=== PATIENT | female | born 1980 | race African-American/Black ===

== ENCOUNTER 2019-01-26 19:34 | Emergency (ER) | payer BC ==
--- NOTE | 2019-01-26 19:58 | EDM.PDOC ---
ED HPI GENERAL MEDICAL PROBLEM - General Chief Complaint: Chest Pain Stated Complaint: CHEST PAIN Time Seen by Provider: 01/26/19 19:42 Source of Information: Reports: Patient, RN Notes Reviewed - History of Present Illness INITIAL COMMENTS - FREE TEXT/NARRATIVE: 38-year-old female comes in with left-sided chest discomfort. She has had this off and on for about a month more bothersome the last few days. She describes it as an ache and somewhat of a pressure without radiation. She does not feel short of breath. She's not been coughing and no recent fever chills. No abdominal pain nausea or vomiting. He has been taking a diet pill for about the past month but has not taken that for about the last 4 or 5 days. Not know the name of it, apparently something she ordered over the Internet. She has no known history of heart or lung problems or other known medical problems. Left Chest Pain Score (Numeric/FACES): 5 - Related Data Allergies Allergy/AdvReac Type Severity Reaction Status Date / Time No Known Allergies Allergy Verified 01/26/19 19:41 Home Meds: Home Meds Diet Pill 2 tab PO DAILY 01/26/19 [History] Naproxen [Naprosyn] 500 mg PO Q12HR #14 tab 01/26/19 [Rx] ED ROS GENERAL - Review of Systems Review Of Systems: See Below Constitutional: Denies: Fever, Chills, Diaphoresis HEENT: Denies: Hearing Loss, Sinus Problem Respiratory: Denies: Shortness of Breath, Wheezing, Pleuritic Chest Pain Cardiovascular: Reports: Chest Pain GI/Abdominal: Denies: Abdominal Pain, Nausea, Vomiting Musculoskeletal: Denies: Shoulder Pain, Arm Pain, Back Pain Skin: Reports: No Symptoms Neurological: Reports: No Symptoms ED EXAM, GENERAL - Physical Exam Exam: See Below General Appearance: Alert, No Apparent Distress Eye Exam: Bilateral Eye: PERRL Throat/Mouth: Normal Inspection Head: Atraumatic Neck: Supple, Full Range of Motion Respiratory/Chest: No Respiratory Distress, Lungs Clear, Normal Breath Sounds Cardiovascular: Tachycardia GI/Abdominal: Soft, Non-Tender Back Exam: No: CVA Tenderness (L), CVA Tenderness (R) Extremities: Normal Inspection. No: Pedal Edema, Leg Pain Neurological: Alert, Oriented, No Motor/Sensory Deficits EKG INTERPRETATION EKG Date: 01/26/19 Rhythm: Other (Sinus tach) [place]: Normal P-Wave: Present QRS: Normal ST-T: Other (Very slight ST elevation in V2, T-wave inversion in leads 3) Course - Vital Signs Last Recorded V/S: Last Vital Signs Temp 97.1 F 01/26/19 19:43 Pulse 113 H 01/26/19 19:43 Resp 18 01/26/19 19:43 BP 149/84 H 01/26/19 19:43 Pulse Ox 100 01/26/19 19:43 - Orders/Labs/Meds Orders: Active Orders 24 hr Category Date Time Status EKG 12 Lead [EKG Documentation Completion] [RC] STAT Care 01/26/19 20:07 Active Chest 1V Frontal [CR] Stat Exams 01/26/19 20:06 Taken Naproxen [Naprosyn] Med 01/26/19 21:47 Once 500 mg PO ONETIME ONE Medication Orders Naproxen (Naprosyn) 500 mg PO ONETIME ONE Stop: 01/26/19 21:48 Labs: Laboratory Tests 01/26/19 01/26/19 01/26/19 Range/Units 20:45 20:45 20:45 WBC 7.28 (3.98-10.04) K/mm3 RBC 4.32 (3.98-5.22) M/mm3 Hgb 11.2 (11.2-15.7) gm/L Hct 35.7 (34.1-44.9) % MCV 82.6 (79.4-94.8) fl MCH 25.9 (25.6-32.2) pg MCHC 31.4 L (32.2-35.5) g/dl RDW Std Deviation 43.8 (36.4-46.3) fL Plt Count 341 (182-369) K/mm3 MPV 9.7 (9.4-12.3) fl Neut % (Auto) 71.8 H (34.0-71.1) % Lymph % (Auto) 20.1 (19.3-51.7) % [place] % (Auto) 6.6 (4.7-12.5) % Eos % (Auto) 1.1 (0.7-5.8) Baso % (Auto) 0.1 (0.1-1.2) % Neut # (Auto) 5.23 (1.56-6.13) K/mm3 Lymph # (Auto) 1.46 (1.18-3.74) K/mm3 [place] # (Auto) 0.48 H (0.24-0.36) K/mm3 Eos # (Auto) 0.08 (0.04-0.36) K/mm3 Baso # (Auto) 0.01 (0.01-0.08) K/mm3 ESR 41 H (0-20) mm/hr Sodium 140 (136-145) mEq/L Potassium 3.8 (3.5-5.1) mEq/L Chloride 103 (98-107) mEq/L Carbon Dioxide 30 (21-32) mEq/L Anion Gap 10.8 (5-15) BUN 9 (7-18) mg/dL Creatinine 1.1 H (0.55-1.02) mg/dL Est Cr Clr Drug Dosing 63.01 mL/min Estimated GFR (MDRD) > 60 (>60) mL/min BUN/Creatinine Ratio 8.2 L (14-18) Glucose 83 (74-106) mg/dL Calcium 8.9 (8.5-10.1) mg/dL Total Bilirubin 0.2 (0.2-1.0) mg/dL AST 20 (15-37) U/L ALT 25 (14-59) U/L Alkaline Phosphatase 98 (46-116) U/L Total Protein 7.4 (6.4-8.2) g/dl Albumin 2.9 L (3.4-5.0) g/dl Globulin 4.5 gm/dL Albumin/Globulin Ratio 0.6 L (1-2) TSH 3rd Generation 2.292 (0.358-3.74) uIU/mL Urine HCG, Qual (NEGATIVE) 01/26/19 Range/Units 21:04 WBC (3.98-10.04) K/mm3 RBC (3.98-5.22) M/mm3 Hgb (11.2-15.7) gm/L Hct (34.1-44.9) % MCV (79.4-94.8) fl MCH (25.6-32.2) pg MCHC (32.2-35.5) g/dl RDW Std Deviation (36.4-46.3) fL Plt Count (182-369) K/mm3 MPV (9.4-12.3) fl Neut % (Auto) (34.0-71.1) % Lymph % (Auto) (19.3-51.7) % [place] % (Auto) (4.7-12.5) % Eos % (Auto) (0.7-5.8) Baso % (Auto) (0.1-1.2) % Neut # (Auto) (1.56-6.13) K/mm3 Lymph # (Auto) (1.18-3.74) K/mm3 [place] # (Auto) (0.24-0.36) K/mm3 Eos # (Auto) (0.04-0.36) K/mm3 Baso # (Auto) (0.01-0.08) K/mm3 ESR (0-20) mm/hr Sodium (136-145) mEq/L Potassium (3.5-5.1) mEq/L Chloride (98-107) mEq/L Carbon Dioxide (21-32) mEq/L Anion Gap (5-15) BUN (7-18) mg/dL Creatinine (0.55-1.02) mg/dL Est Cr Clr Drug Dosing mL/min Estimated GFR (MDRD) (>60) mL/min BUN/Creatinine Ratio (14-18) Glucose (74-106) mg/dL Calcium (8.5-10.1) mg/dL Total Bilirubin (0.2-1.0) mg/dL AST (15-37) U/L ALT (14-59) U/L Alkaline Phosphatase (46-116) U/L Total Protein (6.4-8.2) g/dl Albumin (3.4-5.0) g/dl Globulin gm/dL Albumin/Globulin Ratio (1-2) TSH 3rd Generation (0.358-3.74) uIU/mL Urine HCG, Qual Negative (NEGATIVE) Meds: Medications Generic Name Dose Route Start Last Admin Trade Name Freq PRN Reason Stop Dose Admin Naproxen 500 mg 01/26/19 21:47 Naprosyn PO 01/26/19 21:48 ONETIME ONE Departure - Departure Time of Disposition: 21:49 Disposition: Home, Self-Care 01 Condition: Fair Clinical Impression: Pericarditis Qualifiers: Pericarditis type: unspecified type Chronicity: acute Qualified Code(s): I30.9 - Acute pericarditis, unspecified Prescriptions: Naproxen [Naprosyn] 500 mg PO Q12HR #14 tab Referrals: PCP,None [Primary Care Provider] - Forms: ED Department Discharge Additional Instructions: Rest, drink plenty of water to maintain hydration, Naprosyn 500 mg twice daily, be sure to always take that with food or after meals. follow-up with Cherise or one of our other medical providers at our [facility] medical clinic in about 3 days. Call [phone] tomorrow morning for appointment. Return to ED as needed if symptoms worsening in any way. - My Orders Last 24 Hours: My Active Orders 01/26/19 20:06 Chest 1V Frontal [CR] Stat 01/26/19 20:07 EKG 12 Lead [EKG Documentation Completion] [RC] STAT 01/26/19 21:47 Naproxen [Naprosyn] 500 mg PO ONETIME ONE - Assessment/Plan Last 24 Hours: My Active Orders 01/26/19 20:06 Chest 1V Frontal [CR] Stat 01/26/19 20:07 EKG 12 Lead [EKG Documentation Completion] [RC] STAT 01/26/19 21:47 Naproxen [Naprosyn] 500 mg PO ONETIME ONE
[2019-01-26] MEDS ORDERED: Naproxen 500 MG Tab PO ONE (21:47)
--- NOTE | 2019-01-27 06:15 | CR ---
Chest: Portable view of the chest was obtained. Comparison: No previous chest x-ray. Heart size and mediastinum are normal. Lungs are clear. Bony structures are grossly intact. Impression: 1. Nothing acute is seen on portable chest x-ray. Diagnostic code #1
== END 2019-01-26 22:00 | disposition home or self-care (01) ==
LOC: JD.ED 19:34
DX: I30.9 Acute pericarditis, unspecified (principal)
CPT/HCPCS: 36415; 71045; 80053; 81025; 84443; 85025; 85652; 93005; 99285; A9270; 93010; 99284

== ENCOUNTER 2020-12-08 19:16 | Emergency (ER) | payer BC ==
--- NOTE | 2020-12-08 20:03 | EDM.PDOC ---
ED HPI GENERAL MEDICAL PROBLEM - General Chief Complaint: Lower Extremity Injury/Pain Stated Complaint: RT FOOT SWELLING Time Seen by Provider: 12/08/20 19:36 Source of Information: Reports: Patient History Limitations: Reports: No Limitations - History of Present Illness INITIAL COMMENTS - FREE TEXT/NARRATIVE: Mrs. Hernandez is a very pleasant 39-year-old woman who now presents to the ED due to pain and swelling to the dorsal aspect of her right foot and anterior right ankle that began this past 12/06/2020, after she was dancing on 12/05/2020. She does not recall any direct injury to her ankle or foot, such as rolling it or banging it against anything. No prior right ankle or foot injury. The patient states that she has been applying ice packs and applying a topical pain cream, without much improvement in her symptoms. Here in the ED, the patient's initial BP is found to be slightly elevated at 143/89, otherwise, she is hemodynamically stable, afebrile, saturating 98% on room air. In addition to her right ankle issue, the patient also reports chronic dysmenorrhea that she states was worse when she was younger, but continues as she gets older. She states that she is from [place], and saw a Template Reproduction Technician when there, but she has not seen one since moving to the [facility]. Otherwise, the patient denies having a recent fever, chills, sore throat, ear pain, nasal or sinus congestion, cough, dyspnea, chest pain, palpitations, nausea, vomiting, constipation, diarrhea, abdominal pain, urinary symptoms, recent weight gain or weight loss, recent bloody bowel movements or black bowel movements, recent joint aches, headaches, or rashes. The patient does not have a PCP. She has not received an influenza vaccine this season, but agreed to receive one here in the ED. Right Foot Pain Score (Numeric/FACES): 7 - Related Data Allergies Allergy/AdvReac Type Severity Reaction Status Date / Time No Known Allergies Allergy Verified 12/08/20 19:30 Home Meds: Home Meds [place]-3 Fatty Acids/Fish Oil [Fish Oil 1,000 mg Capsule] 1 cap PO DAILY 12/08/20 [History] Past Medical History Endocrine/Metabolic History: Reports: Obesity/BMI 30+ - Past Surgical History HEENT Surgical History: Reports: Oral Surgery (dental extractions) Female Surgical History: Reports: Section (x 1) Dermatological Surgical History: Reports: Other (See Below) (Bilateral ear keloidectomies) Social & Family History - Tobacco Use Tobacco Use Status *Q: Never Tobacco User Second Hand Smoke Exposure: No - Caffeine Use Caffeine Use: Reports: Coffee, Soda - Alcohol Use Alcohol Use History: Yes Alcohol Use Frequency: Rarely - Recreational Drug Use Recreational Drug Use: No - Living Situation & Occupation Living situation: Reports: , with Spouse, with Family (1 child) Occupation: Employed ([employer] at [employer]) Review of Systems - Review of Systems Review Of Systems: Comprehensive ROS is negative, except as noted in HPI. ED EXAM, GENERAL - Physical Exam Exam: See Below Exam Limited By: No Limitations General Appearance: Alert, WD/WN, No Apparent Distress Extremities: Other (There is very subtle swelling to the dorsal aspect of the patient's right foot. I do not see swelling to the anterior ankle, although the patient believes that there is some swelling and discoloration, which I do not see. There is tenderness to palpation of the anterior syndesmosis extending to the miguel-superior lateral malleolus, with no tenderness whatsoever to the medial malleolus or posterior syndesmosis. There is similar tenderness to palpation along the dorsal aspect of the foot extending to the MTPs. Pain is induced in the foot with passive plantarflexion of the toes or active dorsiflexion, while there is no pain induced with passive dorsiflexion or active plantar flexion. Neurovascular status of the right lower extremity is intact.) Course - Vital Signs Last Recorded V/S: Last Vital Signs Temp 36.6 C 12/08/20 19:28 Pulse 99 12/08/20 19:28 Resp 18 12/08/20 19:28 BP 143/89 H 12/08/20 19:28 Pulse Ox 98 12/08/20 19:28 - Orders/Labs/Meds Orders: Active Orders 24 hr Category Date Time Status Influenza Vaccine Charge [RC] .DISCHARGE Care 12/08/20 19:58 Active Ankle Min 3V Rt [CR] Stat Exams 12/08/20 19:58 Ordered Foot Comp Min 3V Rt [CR] Stat Exams 12/08/20 19:57 Ordered Pharmacy to Dose - InFluenza V [Pharmacy to Dose - Med 12/08/20 19:58 Stat InFluenza Vaccine] 1 each IM ONETIME STA DME for Discharge [COMM] Stat Oth 12/08/20 20:32 Ordered Medication Orders Influenza Virus Vaccine (Pharmacy To Dose - Influenza Vaccine) 1 each IM ONETIME STA Stop: 12/08/20 19:59 Meds: Medications Generic Name Dose Route Start Last Admin Trade Name Iliana PRN Reason Stop Dose Admin Influenza Virus Vaccine 1 each 12/08/20 19:58 Pharmacy To Dose - Influenza Vaccine IM 12/08/20 19:59 ONETIME STA - Re-Assessments/Exams Free Text/Narrative Re-Assessment/Exam: 12/08/20 19:59 As above, the patient developed pain and very mild swelling to the dorsal aspect of her foot and ankle on Saturday, after she was dancing on Saturday. Her examination is consistent with extensor tendinitis, and there is no suspicion for fracture, however, I have ordered x-rays of the right ankle and foot just to be sure. As part of my evaluation, I asked the patient if she has been ill over the past 2 or 3 weeks, and she reported that she has chronic dysmenorrhea. At this time, she appears to be more concerned about her dysmenorrhea than her ankle and foot. After I have finished evaluating her right foot and ankle, my plan will be to refer her to a Template Reproduction Technician. 12/08/20 20:27 4-view radiographs of the right ankle appear to be grossly normal, with no fractures or dislocations identified. Formal read per the Radiologist pending. 4-view radiographs of the right foot appear to be grossly normal, with no fractures or dislocations identified. Formal read per the Radiologist pending. 12/08/20 20:33 X-ray results discussed with the patient. As above, she appears to have extensor tendinitis of her right ankle and foot due to overexertion/strain. I will order an ankle stirrup, which will prevent plantar flexion and dorsiflexion of the foot, which should help to speed its recovery. She should wear it for about a week. I would also like her to apply ice packs and take [id number] ibuprofen. There is no need to continue to apply topical pain medicines, as they have been shown to be of no benefit. Lastly, I will refer her to Dr. Ruiz for gynecologic evaluation of her dysmenorrhea. The patient will be given an influenza vaccine prior to being discharged. Departure - Departure Time of Disposition: 20:35 Disposition: Home, Self-Care 01 Condition: Good Clinical Impression: Tendinitis of right foot - Discharge Information *PRESCRIPTION DRUG MONITORING PROGRAM REVIEWED*: Not Applicable *COPY OF PRESCRIPTION DRUG MONITORING REPORT IN PATIENT DEDRICK: Not Applicable Referrals: PCP,None [Primary Care Provider] - Foster Ruiz MD [Physician] - Forms: ED Department Discharge Additional Instructions: You were seen in the emergency room after developing pain and swelling to the top of your right ankle and foot on Saturday after dancing on Saturday. Work-up in the ER included x-rays of your right ankle and foot, which returned normal, with no broken bones or dislocations seen. Based on your history, physical exam, and ER x-rays, your symptoms are most likely due to extensor tendinitis of your right ankle and foot due to overuse/strain. You have been placed into a stirrup splint. We recommend that you apply the splint in the morning, and remove it at bedtime. We recommend that you wear it for about a week. We recommend that you apply ice packs for 10 to 15 minutes, up to 5 times a day, for the next 2 or 3 days, to help minimize swelling. We recommend that you take [id number] ibuprofen, 3 tablets (600 mg) up to every 8 hours, with food, as needed for discomfort. With respect to your dysmenorrhea, we recommend that you make an appointment to be seen by the Template Reproduction Technician Dr. Foster Ruiz. If any other problems, please do not hesitate to return to the ER. You were given an influenza vaccine during your ER visit. Sepsis Event Note (ED) - Evaluation Sepsis Screening Result: No Definite Risk - Focused Exam Vital Signs: Vital Signs Temp Pulse Resp BP Pulse Ox 12/08/20 19:28 36.6 C 99 18 143/89 H 98 - My Orders Last 24 Hours: My Active Orders 12/08/20 19:57 Foot Comp Min 3V Rt [CR] Stat 12/08/20 19:58 Influenza Vaccine Charge [RC] .DISCHARGE Ankle Min 3V Rt [CR] Stat Pharmacy to Dose - InFluenza V [Pharmacy to Dose - InFluenza Vaccine] 1 each IM ONETIME STA 12/08/20 20:32 DME for Discharge [COMM] Stat - Assessment/Plan Last 24 Hours: My Active Orders 12/08/20 19:57 Foot Comp Min 3V Rt [CR] Stat 12/08/20 19:58 Influenza Vaccine Charge [RC] .DISCHARGE Ankle Min 3V Rt [CR] Stat Pharmacy to Dose - InFluenza V [Pharmacy to Dose - InFluenza Vaccine] 1 each IM ONETIME STA 12/08/20 20:32 DME for Discharge [COMM] Stat
[2020-12-08] MEDS ORDERED: FLU VACC QS2020-21(6MOS UP)/PF 60 MCG/0.5 ML SYRINGE IM ONE (20:45)
--- NOTE | 2020-12-09 08:09 | CR ---
Right ankle: 4 views of the right ankle were obtained. Comparison: No previous study. Ankle mortise is symmetric. No acute fracture or other bony abnormality is appreciated. Impression: 1. No acute osseous finding is seen on right ankle study. Diagnostic code #1
--- NOTE | 2020-12-09 08:18 | CR ---
Right foot: 4 views of the right foot were obtained. Comparison: No prior foot exam is available. No acute fracture, dislocation or other bony abnormality is appreciated. Impression: 1. No abnormality is appreciated on 4 view right foot exam. Diagnostic code #1
== END 2020-12-08 21:09 | disposition home or self-care (01) ==
LOC: JD.ED 19:16
DX: M77.8 Other enthesopathies, not elsewhere classified (principal); E66.9 Obesity, unspecified; Z23 Encounter for immunization
CPT/HCPCS: 73610-26-RT; 73610-RT; 73630-26-RT; 73630-RT; 90686; 99283; 99283-25; G0008

== ENCOUNTER 2021-12-20 03:21 | Emergency (ER) | payer SELFPAY | END 2021-12-20 07:47 | disposition home or self-care (01) | LOC: JD.ED 03:21 | DX: F41.9 Anxiety disorder, unspecified (principal); E66.9 Obesity, unspecified; Z68.38 Body mass index [BMI] 38.0-38.9, adult | CPT/HCPCS: 36415; 36600; 71046; 71046-26; 80053; 81001; 81025; 82803; 83735; 83880; 84443; 84484; 85007; 85027; 85379; 85610; 85730; 93005; 99284-25 ==